=== PATIENT | male | born 1960 ===

== ENCOUNTER 2021-06-23 09:56 | Emergency (ER) | payer BC, OTHER ==
--- NOTE | 2021-06-23 10:26 | EDM.PDOC ---
<Carloz Alvarenga - Last Filed: 06/23/21 15:23> ED HPI GENERAL MEDICAL PROBLEM - General Chief Complaint: Upper Extremity Injury/Pain Stated Complaint: LEFT ARM PAIN FROM FALL Time Seen by Provider: 06/23/21 10:05 - Related Data Allergies Allergy/AdvReac Type Severity Reaction Status Date / Time No Known Allergies Allergy Verified 06/23/21 10:00 Home Meds: Home Meds Canagliflozin [Invokana] 100 mg PO 06/23/21 [History] Furosemide 20 mg PO 06/23/21 [History] Gabapentin [Neurontin] 100 mg PO PRN 06/23/21 [History] Saxagliptin HCl/Metformin HCl [Kombiglyze XR 2.5-1,000 MG] 06/23/21 [History] lisinopriL [Lisinopril] 5 mg PO 06/23/21 [History] Course - Vital Signs Text/Narrative:: Patient seen in conjunction with the PA. Patient had a fall and had a dislocation of the left shoulder. Procedure of left shoulder reduction. The patient was placed under conscious sedation by nurse medical imaging director. Initial attempts were unsuccessful with repeated traction countertraction resulting and reduction of the dislocated shoulder. Patient before and after had a wrist drop that was quite significant. There is no bony tenderness to the area of the hand or wrist. Patient does have some swelling and bruising along the humerus. Humerus x-ray was negative for any fracture. Ortho was contacted and they will follow-up with the patient tomorrow for reevaluation to ensure that there is no continue treatment and management of this neuro deficit. cap refill < 2 seconds with strong radial pulse Departure - Departure Disposition: Home, Self-Care 01 Clinical Impression: Shoulder dislocation, Wrist drop, left - Discharge Information Instructions: Shoulder Dislocation, [id number] Referrals: Rajesh Ramos MD [Primary Care Provider] - Forms: ED Department Discharge Additional Instructions: The following information is given to patients seen in the emergency department who are being discharged to home. This information is to outline your options for follow-up care. We provide all patients seen in our emergency department with a follow-up referral. The need for follow-up, as well as the timing and circumstances, are variable depending upon the specifics of your emergency department visit. If you don't have a primary care physician on staff, we will provide you with a referral. We always advise you to contact your personal physician following an emergency department visit to inform them of the circumstance of the visit and for follow-up with them and/or the need for any referrals to a consulting specialist. The emergency department will also refer you to a specialist when appropriate. This referral assures that you have the opportunity for follow-up care with a s pecialist. All of these measure are taken in an effort to provide you with optimal care, which includes your follow-up. Under all circumstances we always encourage you to contact your private physici an who remains a resource for coordinating your care. When calling for follow-up care, please make the office aware that this follow-up is from your recent emergency room visit. If for any reason you are refused follow-up, please contact the [facility] Emergency Department at and asked to speak to the emergency department charge nurse. [facility], Dr. Frank [facility] [address], [address] [place] [address] 1. Take medication as prescribed. Caution when taking this medication as it does cause drowsiness and sedation. Do not take this medication and operate any heavy equipment or drive any vehicles while on this medication. 2. I would like you to call the orthopedic provider in the morning. He would like to see you tomorrow morning for reevaluation as discussed. The number has been provided above for you to call and set up an appointment time. 3. You can also alternate ibuprofen and Tylenol as directed for pain and discomfort. 4. Keep the splint on until follow-up with the orthopedic provider for further instruction as discussed. Return to the ED as needed and as discussed. <Cathryn Castaneda - Last Filed: 06/23/21 16:48> ED HPI GENERAL MEDICAL PROBLEM - General Source of Information: Reports: Patient History Limitations: Reports: No Limitations - History of Present Illness INITIAL COMMENTS - FREE TEXT/NARRATIVE: HISTORY AND PHYSICAL: History of present illness: Patient is a 60-year-old male who presents emergency room today with concern of left arm injury that occurred yesterday morning. Patient states that he stepped out on the ice and he slipped and fell forward. Patient states he landed directly on his left elbow but also had periodically caught himself with his left wrist. Patient states he did not hit his head or lose consciousness and was not dizzy preceding the fall. Patient states that since then, he has not been able to use much of the left wrist and states that he has pain of his elbow all the way up into his left shoulder. Patient has not taken anything for his symptoms. Patient denies fever, chills, chest pain, shortness of breath, or cough. Denies headache, neck stiff ness, change in vision, syncope, or near syncope. Denies nausea, vomiting, abdominal pain, diarrhea, constipation, or dysuria. Has not noted any blood in urine or stool. Patient has been eating and drinking appropriately. Review of systems: As per history of present illness and below otherwise all systems reviewed and negative. Past medical history: As per history of present illness and as reviewed below otherwise noncontributory. Surgical history: As per history of present illness and as reviewed below otherwise noncontributory. Social history: See social history for further information Family history: As per history of present illness and as reviewed below otherwise noncontributory. Physical exam: General: Patient is alert, oriented, and in no acute distress. Patient sitting comfortably on exam table. Mildly tachycardic 105 on exam, otherwise vitally stable and reviewed by me. HEENT: Atraumatic, normocephalic, pupils equal and reactive bilaterally, negative for conjunctival pallor or scleral icterus, mucous membranes moist, throat clear, neck supple, nontender, trachea midline. No drooling or trismus noted. No meningeal signs. No hot potato voice noted. Lungs: Clear to auscultation, breath sounds equal bilaterally, chest nontender. Heart: S1S2, regular rate and rhythm without overt murmur Abdomen: Soft, nondistended, nontender. Negative for masses or hepatosplenomegaly. Negative for costovertebral tenderness. Pelvis: Stable nontender. Genitourinary: Deferred. Rectal: Deferred. Skin: Intact, warm, dry. No lesions or rashes noted. Extremities: The left forearm is moderately edematous. Patient is unable to extend his left wrist and is holding the left wrist in flexion but is able to do this with passive range of motion. Patient has limited range of motion of the left shoulder due to pain but does have full range of motion of the left elbow. Radial pulse is grossly intact of the left upper extremity with capillary refill less than 2 seconds. Intact sensation to light and deep touch of the complete left upper extremity. Otherwise, atraumatic, negative for cords or calf pain. Neurovascular unremarkable. Neuro: Awake, alert, oriented. Cranial nerves II through XII unremarkable. Cerebellum unremarkable. Motor and sensory unremarkable throughout. Exam nonfocal. Medical Decision Making: I did call and speak to the orthopedic provider on-call, Dr. Frank, and thoroughly discussed patient's case. He states that to care for his wrist drop right now, relocate the shoulder, place patient in a regular shoulder splint/not a shoulder immobilizer given his size, and have patient follow-up tomorrow for reevaluation by Dr. Frank. At this time, anesthesia was unable to perform conscious sedation until patient has been 8 hours fasting. Due to status of the emergency room, unable to do conscious sedation without anesthesia. Anesthesia will come in at 1500 for conscious sedation. See procedure note below. Reevaluation of patient following successful reduction of the left shoulder. He is alert and oriented to person place and time. He does have some throbbing of his left shoulder so we will give an additional 0.5 of Dilaudid and reassess. Following therapeutics, patient is much more comfortable today in the emergency room. Strict return precautions thoroughly discussed with patient. Discussed importance for follow-up with Dr Frank tomorrow. Voices understanding and is agreeable to plan of care. Denies any further questions or concerns at this time. Diagnostics: Hand, Forearm, Humerus, LT Therapeutics: Dilaudid, Zofran, Conscious Sedation (per anethesia), Shoulder relocation Prescription: Shoup (#4 tabs) Impression: Shoulder dislocation, s/p relocation, left Wrist drop, left, possible radial nerve injury Plan: 1. Take medication as prescribed. Caution when taking this medication as it does cause drowsiness and sedation. Do not take this medication and operate any heavy equipment or drive any vehicles while on this medication. 2. I would like you to call the orthopedic provider in the morning. He would like to see you tomorrow morning for reevaluation as discussed. The number has been provided above for you to call and set up an appointment time. 3. You can also alternate ibuprofen and Tylenol as directed for pain and disc omfort. 4. Keep the splint on until follow-up with the orthopedic provider for further instruction as discussed. Return to the ED as needed and as discussed. Definitive disposition and diagnosis as appropriate pending reevaluation and review of above. 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 Neurological History: Reports: Neuropathy, Diabetic Endocrine/Metabolic History: Reports: Diabetes, Type II - Infectious Disease History Infectious Disease History: Reports: Chicken Pox - Past Surgical History GI Surgical History: Reports: Other (See Below) Other GI Surgeries/Procedures: Surgical repair of bowel; hx of temporary stoma Musculoskeletal Surgical History: Reports: Amputation Social & Family History - Family History Family Medical History: No Pertinent Family History - Caffeine Use Caffeine Use: Reports: Coffee - Recreational Drug Use Recreational Drug Use: No Review of Systems - Review of Systems Review Of Systems: Comprehensive ROS is negative, except as noted in HPI. ED EXAM, GENERAL - Physical Exam Exam: See Below (see dictation) ED TRAUMA EXTREMITY PROCEDURES - Joint Reduction Left Shoulder Sedation: Conscious Sedation Pre-Procedure NV Status: Normal Post-Procedure NV Status: Normal Technique: Traction/Counter Traction Number of Attempts: 2 Post-Reduction Imaging: Completely Reduced, No Fracture Seen Joint Reduction Complications: No Course - Vital Signs Last Recorded V/S: Last Vital Signs Temp 99.2 F 06/23/21 16:35 Pulse 88 06/23/21 16:35 Resp 18 06/23/21 16:35 BP 150/84 H 06/23/21 16:35 Pulse Ox 95 06/23/21 16:35 - Orders/Labs/Meds Meds: Medications Discontinued Medications Generic Name Dose Route Start Last Admin Trade Name Daoq PRN Reason Stop Dose Admin Fentanyl Confirm 06/23/21 14:49 Fentanyl 100 Mcg/2 Ml Sdv Administered 06/23/21 14:50 Dose 100 mcg .ROUTE .STK-MED ONE Hydromorphone HCl 1 mg 06/23/21 12:25 06/23/21 12:55 Hydromorphone 1 Mg/Ml Syringe IVPUSH 06/23/21 12:26 1 mg ONETIME ONE Administration Hydromorphone HCl 0.5 mg 06/23/21 15:55 06/23/21 16:05 Hydromorphone 1 Mg/Ml Syringe IVPUSH 06/23/21 15:56 0.5 mg ONETIME ONE Administration Lidocaine HCl Confirm 06/23/21 14:48 Lidocaine 1% 5 Ml Sdv Administered 06/23/21 14:49 Dose 5 ml .ROUTE .STK-MED ONE Ondansetron HCl 4 mg 06/23/21 12:25 06/23/21 12:55 Ondansetron 4 Mg/2 Ml Sdv IVPUSH 06/23/21 12:26 4 mg ONETIME ONE Administration Propofol Confirm 06/23/21 14:49 Propofol 200 Mg/20 Ml Sdv Administered 06/23/21 14:50 Dose 400 mg .ROUTE .STK-MED ONE Departure - Departure Time of Disposition: 16:01 Sepsis Event Note (ED) - Evaluation Sepsis Screening Result: No Definite Risk - Focused Exam Vital Signs: Vital Signs Temp Pulse Resp BP Pulse Ox 06/23/21 16:35 99.2 F 88 18 150/84 H 95 06/23/21 15:09 71 127/62 96 06/23/21 14:38 84 180/101 H 99 06/23/21 13:48 84 180/101 H 100 06/23/21 13:19 58 L 117/67 99 06/23/21 13:06 87 18 179/108 H 95 06/23/21 10:04 96.9 F 125 H 18 175/97 H 95
--- NOTE | 2021-06-23 11:34 | CR ---
Indication: Fall Comparison: None available. Technique: AP and lateral views left forearm were obtained Findings: There is no displaced fracture or dislocation. The joint spaces are grossly preserved. There is moderate superficial soft tissue swelling. There is a enthesophyte at the insertion of the likely non. Impression: Moderate superficial soft tissue swelling without evidence of displaced fracture. Dictated by Kristopher Shepherd MD @ 06/23/2021 11:33:05 AM (Electronically Signed)
--- NOTE | 2021-06-23 11:36 | CR ---
Indication: Fall yesterday, pain Comparison: None available. Technique: Two views left humerus Findings: There is demonstration of anterior dislocation of the humeral head from the glenohumeral joint. There is mild to moderate superficial soft tissue swelling. There is no evidence of displaced fracture. Impression: Anterior dislocation of the humeral head from the glenohumeral joint with superficial soft tissue swelling. Dictated by Kristopher Shepherd MD @ 06/23/2021 11:34:53 AM (Electronically Signed)
--- NOTE | 2021-06-23 11:40 | CR ---
Indication: Fall, Pain Comparison: None available. Technique: AP, Lateral, and Oblique views left hand were obtained Findings: There is no displaced fracture or dislocation. Degenerative changes of the interphalangeal joints are appreciated with joint space loss and marginal osteophyte formation. There is mild dorsal soft tissue swelling. Impression: Mild dorsal soft tissue swelling and degenerative changes of the interphalangeal joints without evidence of acute osseous abnormality. Dictated by Kristopher Shepherd MD @ 06/23/2021 11:39:21 AM (Electronically Signed)
[2021-06-23] MEDS ORDERED: HYDROmorphone 1 MG/ML Syringe IVPUSH ONE ×2 (12:25→15:55)
[2021-06-23] MEDS ORDERED: Ondansetron 4 MG/2 ML SDV IVPUSH ONE (12:25)
[2021-06-23] MEDS ORDERED: fentaNYL 100 MCG/2 ML SDV ONE (14:49)
[2021-06-23] MEDS ORDERED: Propofol 200 MG/20 ML SDV ONE (14:49)
--- NOTE | 2021-06-23 15:54 | PCM.SN.2 ---
- Free Text/Narrative Note: Anesthesia start:1500 Anesthesia stop: 1530 Called to ED for procedural sedation for closed reduction of shoulder. patient NPO since 0700 today. pre anesthesia assessment and consent. BP, HR, ETCO2, SpO2, ECG monitored throughout and immediately following procedure. 50 mg lidocaine, 200 mg propofol, 100 mcg fentanyl given. VSS throughout. patient monitored by anesthesia following procedure, patient talking, NC removed, VSS. report given to ED RN.
--- NOTE | 2021-06-23 16:22 | CR ---
Indication: Postreduction left shoulder. Technique: Left shoulder 2 views. Comparison: None. Findings/Impression: Dislocation has been successfully reduced. Alignment is now normal. No fracture or other new abnormality. Dictated by Samuel Montelongo MD @ 06/23/2021 4:21:14 PM (Electronically Signed)
== END 2021-06-23 16:55 | disposition home or self-care (01) ==
LOC: MW.ED 09:56
DX: S43.015A Anterior dislocation of left humerus, initial encounter (principal); M21.332 Wrist drop, left wrist; E11.40 Type 2 diabetes mellitus with diabetic neuropathy, unspecified; Z79.899 Other long term (current) drug therapy; W00.0XXA Fall on same level due to ice and snow, initial encounter
CPT/HCPCS: 23650; 73030; 73060; 73090; 73130; 96374; 96375; 96376; 99283; J1170; J2405; J2704; J3010